=== PATIENT | female | born 1950 | race Caucasian/White ===

== ENCOUNTER → 2016-11-29 | Day surgery (SDC) | payer MEDICARE, BC ==
[~2016-11-29] MED LIST: PROPOFOL 500 MG/50 ML EMU IV ONE
[2016-11-29 10:33] VITALS: PULSE 67; TEMP 97.4
[2016-11-29 10:43] VITALS: BP 116/78; RESP 18; O2SAT 97
== END | disposition home or self-care (01) | DRG 951 ==
LOC: SURG 08:59
PROVIDERS: ATTEND Surgery
DX: Z12.11 Encounter for screening for malignant neoplasm of colon (principal); K57.30 Diverticulosis of large intestine without perforation or abscess without bleeding
CPT/HCPCS: G0121; J2001; J2704